=== PATIENT | female | born 1960 ===

== ENCOUNTER 2017-09-29 06:21 | Day surgery (SDC) | payer MEDICARE, OTHER ==
[2017-08-12 10:38] VITALS: BMI 25.7
[2017-09-29] MEDS ORDERED: Lactated Ringer's 1,000 ML IV ONE (08:50)
[2017-09-29] MEDS ORDERED: Propofol 10 mg/ml Inj (20 ML) ONE (08:59)
[2017-09-29 09:38] VITALS: TEMP 97
[2017-09-29 14:20] VITALS: BP 129/70; PULSE 71; RESP 15; O2SAT 99
== END 2017-09-29 10:40 | disposition home or self-care (01) ==
LOC: C.ENDO 06:21
PROVIDERS: ATTEND Internal Medicine Gastroenterology
DX: K25.9 Gastric ulcer, unspecified as acute or chronic, without hemorrhage or perforation (principal)
CPT/HCPCS: 43239; 88305; J2001; J2704; J7120